=== PATIENT | male | born 1945 | race Caucasian/White ===

== ENCOUNTER 2020-06-15 17:09 | Observation (INO) | payer MEDICARE, OTHER ==
[~2020-06-15] VITALS: Ht 180.3 cm; Wt 137.4 kg
--- NOTE | 2020-06-15 17:52 | PHYS DOC ---
General Adult EDM: Chief Complaint: CHEST PAIN HPI: HPI: 74-year-old male presents after syncopal episode. The patient was loading a table into his truck and then went home. After he got home and started walking up the stairs he began to get dizzy. He describes the dizziness as a lightheaded feeling. He got inside the house and then believes he had a syncopal episode. He woke up on the floor. He is unsure how long he was unc onscious. When he woke up he had central chest pain that was a pressure sensation 4 out of 10 and a bandlike headache that was mild to moderate. He called an ambulance to come to the hospital. Patient denies any other injuries from the syncopal episode. He was feeling okay prior to this. No other symptoms of illness. He has had a cardiac cath once in the past but it was 4 to 5 years ago. No stress test since then. The patient is diabetic on several medications. He also has hypertension. He denies fever or chills. (PARISH BERG DO) Review of Systems: Review of Systems: Constitutional: Denies fever or chills Eyes: Denies change in visual acuity HENT: Denies nasal congestion or sore throat Respiratory: Denies cough or shortness of breath Cardiovascular: Chest pain GI: Denies abdominal pain, nausea, vomiting, bloody stools or diarrhea : Denies dysuria Musculoskeletal: Denies back pain or joint pain Integument: Denies rash Neurologic: Headache, syncope. Denies focal weakness or sensory changes Endocrine: Denies polyuria or polydipsia Lymphatic: Denies swollen glands Psychiatric: Denies depression or anxiety (PARISH BERG DO) Heart Score: HEART Score for Chest Pain: HEART Score for Chest Pain Response (Comments) Value History Slighlty/Non-Suspicious 0 ECG Normal 0 Age > 65 2 Risk Factors >3 Risk Factors or Hx CAD 2 Total 4 Risk Factors: Risk Factors: DM, Current or recent (<one month) smoker, HTN, HLP, family history of CAD, obesity. Risk Scores: Score 0 - 3: 2.5% MACE over next 6 weeks - Discharge Home Score 4 - 6: 20.3% MACE over next 6 weeks - Admit for Clinical Observation Score 7 - 10: 72.7% MACE over next 6 weeks - Early Invasive Strategies (PARISH BERG DO) Allergies: Allergies: Allergies Coded Allergies Type Severity Reaction Last Updated Verified No Known Drug Allergies 06/15/20 No (PARISH BERG DO) Physical Exam: PE: Constitutional: Well developed, well nourished, morbid obesity, no acute distress, non-toxic appearance. [] HENT: Normocephalic, atraumatic, bilateral external ears normal, oropharynx moist, no oral exudates, nose normal. [] Eyes: PERRLA, EOMI, conjunctiva normal, no discharge. [] Neck: Normal range of motion, no tenderness, supple, no stridor. [] Cardiovascular: Heart rate regular rhythm, no murmur [] Lungs & Thorax: Bilateral breath sounds clear to auscultation [] Abdomen: Bowel sounds normal, soft, no tenderness, no masses, no pulsatile masses. [] Skin: Warm, dry, no erythema, no rash. [] Back: No tenderness, no CVA tenderness. [] Extremities: No tenderness, no cyanosis, no clubbing, ROM intact, no edema. [] Neurologic: Alert and oriented X 3, normal motor function, normal sensory function, no focal deficits noted. [] Psychologic: Affect normal, judgement normal, mood normal. [] (PARISH BERG DO) EKG: EKG: Sinus rhythm, rate 85, normal axis, no ST elevations or depressions. [] (PARISH BERG DO) Radiology/Procedures: Radiology/Procedures: [] (PARISH BERG DO) Course & Med Decision Making: Course & Med Decision Making Pertinent Labs and Imaging studies reviewed. (See chart for details) The patient's work-up is pending. I am signing the patient out to Dr. Alvarez at 1800. [] (PARISH BERG DO) Course & Med Decision Making Assumed care from Dr. Berg at shift change. Patient resting comfortably. Discussed admission for chest pain evaluation and syncope. Patient admitted to Dr. Delgado on telemetry (LAVELL ALVAREZ MD) Gonzalo Disclaimer: Gonzalo Disclaimer: This electronic medical record was generated, in whole or in part, using a voice recognition dictation system. (PARISH BERG DO) Departure Departure: Impression: Primary Impression: Syncope Additional Impression: Chest pain Disposition: 01 DC HOME SELF CARE/HOMELESS Condition: STABLE Referrals: PCP,NO (PCP) PARISH BERG DO Jun 15, 2020 17:52 LAVELL ALVAREZ MD Jun 15, 2020 19:20
--- NOTE | 2020-06-15 18:01 | EKG ---
[address] [address] Test Date: 2020-06-15 Test Time: 17:23:27 Pat Name: AMERICA TONY Department: Room: Gender: M Presentation Team Member: : [id number] Requested By: PARISH BERG Order Number: [id number] Reading MD: Measurements Intervals [place] Rate: 85 P: 42 W[place]: 140 QRS: 16 QRSD: 96 T: 66 QT: 376 QTc: 448 Interpretive Statements SINUS RHYTHM LOW LIMB LEAD VOLTAGE NO SPECIFIC ECG ABNORMALITIES RI6.02 No previous ECG available for comparison
[2020-06-15 18:13] LABS: BASO # 0.1 x10^3/uL (0.0-0.2); BASO % 1 % (0-3); EOS # 0.1 x10^3/uL (0.0-0.7); EOS % 1 % (0-3); HEMATOCRIT 44.6 % (39.0-53.0); HEMOGLOBIN 14.9 g/dL (13.0-17.5); LYMPH # 1.8 x10^3/uL (1.0-4.8); LYMPH % 26 % (24-48); MEAN CORPUSCULAR HEMOGLOBIN 32 pg (25-35); MEAN CORPUSCULAR HGB CONC 33 g/dL (31-37); MEAN CORPUSCULAR VOLUME 96 fL (79-100); MONO # 0.7 x10^3/uL (0.0-1.1); MONO % 9 % (0-9); NEUT # 4.3 x10^3uL (1.8-7.7); NEUT % 62 % (31-73); PLATELET COUNT 160 x10^3/uL (140-400); RED BLOOD COUNT 4.67 x10^6/uL (4.30-5.70); RED CELL DISTRIBUTION WIDTH 13.7 % (11.5-14.5); WHITE BLOOD COUNT 6.9 x10^3/uL (4.0-11.0)
--- NOTE | 2020-06-15 18:15 | RAD ---
Examination: CT HEAD WO CONTRAST History: Reason: syncope / Comparison/Correlation: None Findings: Axial images of the head were obtained without contrast. Atrophy is present. No intracranial hemorrhage, midline shift, or mass effect. Cavernous carotid calcifications present. Bony structures unremarkable. Orbits are unremarkable. Impression: No suspicious process. Electronically signed by: Monico James MD (06/15/2020 6:12 PM) [facility]
[2020-06-15 18:16] LABS: CALCIUM 9.2 mg/dL (8.5-10.1); CREATININE 1.5 mg/dL (0.7-1.3); GFR 45.6; POTASSIUM 4.2 mmol/L (3.5-5.1)
[2020-06-15 18:23] LABS: ALBUMIN/GLOBULIN RATIO 1.1 (1.0-1.7); TOTAL BILIRUBIN 0.2 mg/dL (0.2-1.0); TOTAL PROTEIN 7.6 g/dL (6.4-8.2)
--- NOTE | 2020-06-15 18:49 | RAD ---
Examination: CHEST AP ONLY History: Reason: syncope / Spl. Instructions: / History: Comparison: 06/21/2007. Findings: AP portable upright frontal view of the chest was obtained. The cardiomediastinal silhouette is normal. Lungs are clear. There is no pneumothorax. No pleural effusion is appreciated. No acute bone abnormality. IMPRESSION: No acute cardiopulmonary process. Electronically signed by: Monico James MD (06/15/2020 6:45 PM) [facility]
[2020-06-15] MEDS ORDERED: ACETAMINOPHEN 325 MG TABLET PO PRN (19:30)
[2020-06-15] MEDS ORDERED: NITROGLYCERIN SUBLINGUAL 0.4 MG BOTTLE OF 25. SL PRN (19:30)
[2020-06-15] MEDS ORDERED: ACETAMINOPHEN 325 MG TABLET PO ONE (19:30)
[2020-06-15] MEDS ORDERED: ONDANSETRON PF 4 MG/2 ML VIAL. IVP PRN (19:30)
--- NOTE | 2020-06-15 20:30 | NUR ---
The patient, AMERICA TONY, 74 y/o, M admitted by MICHELLE MARTI MD, was given written information regarding hospital policies, unit procedures and contact persons. Valuables were checked and documented. pt vitals are stable, pt is on telemetry. pt is A&OX4 and had complaints of only a headache at this time, pt was given tylenol per order. pt is currently resting in bed. will continue to monitor.
[2020-06-15 21:26] VITALS: BP 133/92
[2020-06-15] MEDS ORDERED: metFORMIN XR 500 MG TAB.ER.24H PO SCH (22:00)
[2020-06-15] MEDS ORDERED: LINAGLIPTIN 5 MG TABLET PO SCH (22:00)
[2020-06-15] MEDS ORDERED: PIOG15TA42 PO (23:00)
[2020-06-15] MEDS ORDERED: ASPI-630 PO (23:00)
[2020-06-15 23:04] VITALS: BP 164/81
[2020-06-15] MEDS ORDERED: GLIM4TAB8 PO (23:05)
[2020-06-15] MEDS ORDERED: GLIM4TAB PO (23:05)
[2020-06-15] MEDS ORDERED: TELM80TA PO (23:05)
[2020-06-16 01:39] LABS: BASO # 0.1 x10^3/uL (0.0-0.2); BASO % 1 % (0-3); EOS # 0.2 x10^3/uL (0.0-0.7); EOS % 3 % (0-3); HEMATOCRIT 41.4 % (39.0-53.0); HEMOGLOBIN 14.1 g/dL (13.0-17.5); LYMPH # 2.6 x10^3/uL (1.0-4.8); LYMPH % 36 % (24-48); MEAN CORPUSCULAR HEMOGLOBIN 32 pg (25-35); MEAN CORPUSCULAR HGB CONC 34 g/dL (31-37); MEAN CORPUSCULAR VOLUME 95 fL (79-100); MONO # 0.8 x10^3/uL (0.0-1.1); MONO % 11 % (0-9); NEUT # 3.6 x10^3uL (1.8-7.7); NEUT % 49 % (31-73); PLATELET COUNT 140 x10^3/uL (140-400); RED BLOOD COUNT 4.37 x10^6/uL (4.30-5.70); RED CELL DISTRIBUTION WIDTH 13.5 % (11.5-14.5); WHITE BLOOD COUNT 7.2 x10^3/uL (4.0-11.0)
[2020-06-16 01:55] LABS: ALBUMIN 3.6 g/dL (3.4-5.0); ALBUMIN/GLOBULIN RATIO 1.1 (1.0-1.7); CALCIUM 9.2 mg/dL (8.5-10.1); CREATININE 1.4 mg/dL (0.7-1.3); GFR 49.4; POTASSIUM 3.9 mmol/L (3.5-5.1); TOTAL BILIRUBIN 0.2 mg/dL (0.2-1.0); TOTAL PROTEIN 6.8 g/dL (6.4-8.2)
[2020-06-16 05:24] VITALS: BP 161/84
--- NOTE | 2020-06-16 08:38 | PDOC2 ---
CARDIAC CONSULT DATE OF CONSULT DOS: DATE: 06/16/20 TIME: 08:34 REASON FOR CONSULT Reason for Consult Chest pain REFERRING PHYSICIAN Referring Physician Dr. Delgado SOURCE Source: Chart review, Patient HPI History of Present Illness This is a 74 yo male who presented secondary to syncopal episode and chest pain. Patient is moving here from [place] to be closer to family. Purchased a table and went and picked in up yesterday. Load this table in his truck and went home. Was feeling well at that time. Reports he went home and was in his bedroom. Began feeling dizzy and nauseated. Next thing he knew he was on the floor and had passed out. Unsure how long he was down. Was slightly confused upon awakening. Had headache and had some tightness in his central chest with intermittent stabbing pain in the central chest. Was diaphoretic upon awakening as well. Decided to come to the ED for further evaluation and treatment. Has a history of Torsades reportedly. Was diagnosed about [address] [facility]. Underwent cardiac catheterization at that time for he report to have been normal. He reports pacemaker was discussed at that time, but he did not want any further hardware in his body. PAST MEDICAL HISTORY Cardiovascular: HTN, Other (Torsades) Pulmonary: Other (WILFREDO) Endocrine: Diabetes, Other (obese ) PAST SURGICAL HISTORY Past Surgical History: Other (neck fusion, lower back surgery, hernia repair ) FAMILY HISTORY Family History: Cancer, Diabetes, Heart Disease SOCIAL HISTORY Smoke: No ALCOHOL: none Drugs: None Lives: Friends (recently moved from [place]. Living with friend until he closes on his new home) CURRENT MEDICATIONS Current Medications Current Medications Ondansetron HCl (Zofran) 4 mg PRN Q4HRS PRN IVP NAUSEA/VOMITING; Start 06/15/20 at 19:30; Stop 06/16/20 at 19:29 Fentanyl Citrate (Fentanyl 2ml Vial) 50 mcg PRN Q1HR PRN IVP PAIN; Start 06/15/20 at 19:30; Stop 06/16/20 at 19:29 Acetaminophen (Tylenol) 650 mg PRN Q4HRS PRN PO FEVER > 100.3'F Last administered on 06/15/20at 22:01; Start 06/15/20 at 19:30; Stop 06/16/20 at 19:29 Nitroglycerin (Nitrostat) 0.4 mg PRN Q5MIN PRN SL CHEST PAIN; Start 06/15/20 at 19:30; Stop 06/16/20 at 19:29 Acetaminophen (Tylenol) 650 mg 1X ONCE PO ; Start 06/15/20 at 19:30; Stop 06/15/20 at 19:40; Status DC Linagliptin (Tradjenta) 5 mg HS PO Last administered on 06/15/20at 22:01; Start 06/15/20 at 22:00 Metformin HCl (Glucophage Xr) 1,000 mg HS PO Last administered on 06/15/20at 22:01; Start 06/15/20 at 22:00 Active Scripts Active Reported Amaryl (Glimepiride) 4 Mg Tablet 1 Tab PO DAILY Micardis (Telmisartan) 80 Mg Tablet 1 Tab PO DAILY Glimepiride 4 Mg Tablet 1 Tab PO DAILY Actos (Pioglitazone Hcl) 15 Mg Tablet 1 Tab PO DAILY 30 Days Aspirin 81 Mg Tab.chew 81 Mg PO DAILY ALLERGIES Allergies: Coded Allergies: No Known Drug Allergies (Unverified , 06/15/20) ROS Review of Systems 14 point ROS conducted with pertinent positives noted above in HPI PHYSICAL EXAM General: Alert, Oriented X3, Cooperative, No acute distress HEENT: Atraumatic, Other (central chest pain with palpation) Lungs: Clear to auscultation Heart: Regular rate Abdomen: Soft, Other (obese ) Skin: No rashes, No breakdown Neuro: Normal speech, Sensation intact Psych/Mental Status: Mental status NL, Mood NL MUSCULOSKELETAL: Osteoarthritic changes both hands VITALS Vital Signs Vital Signs Date Time Temp Pulse Resp B/P (MAP) Pulse Ox O2 Delivery O2 Flow Rate FiO2 06/16/20 05:24 97.7 95 20 161/84 (109) 95 Room Air LABS LABS Laboratory Tests Test 06/15/20 17:17 06/16/20 01:14 06/16/20 07:11 White Blood Count 6.9 x10^3/uL (4.0-11.0) 7.2 x10^3/uL (4.0-11.0) Red Blood Count 4.67 x10^6/uL (4.30-5.70) 4.37 x10^6/uL (4.30-5.70) Hemoglobin 14.9 g/dL (13.0-17.5) 14.1 g/dL (13.0-17.5) Hematocrit 44.6 % (39.0-53.0) 41.4 % (39.0-53.0) Mean Corpuscular Volume 96 fL (79-100) 95 fL (79-100) Mean Corpuscular Hemoglobin 32 pg (25-35) 32 pg (25-35) Mean Corpuscular Hemoglobin Concent 33 g/dL (31-37) 34 g/dL (31-37) Red Cell Distribution Width 13.7 % (11.5-14.5) 13.5 % (11.5-14.5) Platelet Count 160 x10^3/uL (140-400) 140 x10^3/uL (140-400) Neutrophils (%) (Auto) 62 % (31-73) 49 % (31-73) Lymphocytes (%) (Auto) 26 % (24-48) 36 % (24-48) Monocytes (%) (Auto) 9 % (0-9) 11 % (0-9) Eosinophils (%) (Auto) 1 % (0-3) 3 % (0-3) Basophils (%) (Auto) 1 % (0-3) 1 % (0-3) Neutrophils # (Auto) 4.3 x10^3uL (1.8-7.7) 3.6 x10^3uL (1.8-7.7) Lymphocytes # (Auto) 1.8 x10^3/uL (1.0-4.8) 2.6 x10^3/uL (1.0-4.8) Monocytes # (Auto) 0.7 x10^3/uL (0.0-1.1) 0.8 x10^3/uL (0.0-1.1) Eosinophils # (Auto) 0.1 x10^3/uL (0.0-0.7) 0.2 x10^3/uL (0.0-0.7) Basophils # (Auto) 0.1 x10^3/uL (0.0-0.2) 0.1 x10^3/uL (0.0-0.2) Sodium Level 139 mmol/L (136-145) 140 mmol/L (136-145) Potassium Level 4.2 mmol/L (3.5-5.1) 3.9 mmol/L (3.5-5.1) Chloride Level 104 mmol/L (98-107) 105 mmol/L (98-107) Carbon Dioxide Level 23 mmol/L (21-32) 25 mmol/L (21-32) Anion Gap 12 (6-14) 10 (6-14) Blood Urea Nitrogen 15 mg/dL (8-26) 16 mg/dL (8-26) Creatinine 1.5 mg/dL (0.7-1.3) 1.4 mg/dL (0.7-1.3) Estimated GFR (Cockcroft-Gault) 45.6 49.4 BUN/Creatinine Ratio 10 (6-20) 11 (6-20) Glucose Level 153 mg/dL (70-99) 166 mg/dL (70-99) Calcium Level 9.2 mg/dL (8.5-10.1) 9.2 mg/dL (8.5-10.1) Total Bilirubin 0.2 mg/dL (0.2-1.0) 0.2 mg/dL (0.2-1.0) Aspartate Amino Transf (AST/SGOT) 20 U/L (15-37) 16 U/L (15-37) Alanine Aminotransferase (ALT/SGPT) 40 U/L (16-63) 36 U/L (16-63) Alkaline Phosphatase 98 U/L (46-116) 86 U/L (46-116) Troponin I Quantitative < 0.017 ng/mL (0-0.055) < 0.017 ng/mL (0-0.055) < 0.017 ng/mL (0-0.055) Total Protein 7.6 g/dL (6.4-8.2) 6.8 g/dL (6.4-8.2) Albumin 4.0 g/dL (3.4-5.0) 3.6 g/dL (3.4-5.0) Albumin/Globulin Ratio 1.1 (1.0-1.7) 1.1 (1.0-1.7) ASSESSMENT/PLAN Assessment/Plan 1. Syncope; CT head without acute findings. No acute arrhythmias noted on tele 2. Chest pain, mixed features; AMI ruled out. Reports [facility] 7 years ago without intervention 3. H/o Torsades?; patient reports he was diagnosed 7 years ago during stress test. Was taken for LHC, which was unrevealing. Pacemaker/AICD was discussed, but he declined. Does not follow with publications manager. 4. Hypertension; elevated 5. Diabetes, II 6. CKD 7. WILFREDO; non-compliant with CPAP Recommendations Echo to assess LV systolic function Lipids, TSH ASA therapy Home antiHTN therapy resumed Add low-dose BB Monitor tele Outpatient event monitor versus loop recorder implant; will discussed with primary publications manager Outpatient ischemic evaluation with stress testing as scheduled Follow up this Monday with Dr. Valentino in [facility] at 2:30pm JUAN CARLOS PARRA APRN Jun 16, 2020 08:38
[2020-06-16] MEDS ORDERED: GLIMEPIRIDE 2 MG TABLET PO SCH ×2 (10:00→21:00)
[2020-06-16] MEDS ORDERED: ASPIRIN CHEWABLE 81 MG TABLET. PO SCH (10:00)
[2020-06-16] MEDS ORDERED: LOSARTAN 50 MG TABLET. PO SCH (10:00)
[2020-06-16] MEDS ORDERED: PIOGLITAZONE 15 MG TABLET. PO SCH (10:00)
--- NOTE | 2020-06-16 10:49 | NUR ---
Patient is sitting in bed watching tv. He is cooperative, calm and pleasant. Oriented x4. Cardiology was here to see patient, she stated he will have an echo and some follow up through them. Patient knowledgeable about his medications and his health. He states he feels "much better" than he did last night.
[2020-06-16 11:10] VITALS: BP 134/82
--- NOTE | 2020-06-16 14:15 | HP ---
ADMIT DATE: 06/15/2020 HISTORY OF PRESENT ILLNESS: The patient is a 74-year-old male patient, who presented secondary to syncopal episode and chest pain. The patient is moving here from [place] to be closer to his family, purchased a table and went and picked it up yesterday, loaded this table in his truck and went home, was feeling well at that time, he reports he went home and was in the bedroom, began feeling dizzy and nauseated, next thing he knew he was on the floor, had passed out. Unsure how long he was down, was slightly confused upon awakening. He has headache and some tightness in his central chest with intermittent stabbing pain in his central chest, was diaphoretic upon awakening as well, decided to come to the Emergency Room for further evaluation and treatment. He apparently had a history of torsades reported, was diagnosed about [address] [facility] and underwent cardiac catheterization at that time. However, he has no stents placed. He reports that the pacemaker was discussed at that time, but he did not want any further hardware in his body and was basically seen in the Emergency Room, evaluated and has had first set of cardiac enzyme, first set of cardiac enzyme was less than 0.17 and was admitted to do 2 more sets of cardiac enzyme and to consult the cardiology team and to monitor him on telemetry bed. PAST MEDICAL HISTORY: Significant for an episode of torsades de pointes. He has hypertension, type 2 diabetes mellitus, chronic kidney disease, COPD, obstructive sleep apnea, generalized osteoarthritis. He said he has a CPAP, but has never used it. PAST SURGICAL HISTORY: Significant for bilateral total ____ arthroplasty, cervical spine fusion, lumbar spine fusion. He also has bilateral cataract extraction and hernia repair. ALLERGIES: He has no known drug allergies. FAMILY HISTORY: He has 2 sisters who are alive and younger. One brother who is younger because of complication of drug abuse after he served in [place]. His father at the age of 74 because of throat cancer. Mother at the age of 62 because of breast cancer. SOCIAL HISTORY: He is , has 4 daughters. He smoked a long time ago. Does not drink alcohol or use recreational drugs. He is currently on disability. He apparently currently lives with friends. Has recently moved from [place], living with ____ in his new home. CURRENT MEDICATIONS: He is on Micardis 80 mg once a day, aspirin 81 mg once a day, glimepiride 4 mg daily, and pioglitazone for Actos 50 mg p.o. daily. PHYSICAL EXAMINATION: GENERAL: On arrival to the Emergency Room, he looked well and was clearly in no apparent respiratory distress. No pallor, jaundice, cyanosis or thyromegaly. No jugular venous distention. No lower limb edema. VITAL SIGNS: His heart rate was 86, blood pressure was 160/120, temperature was 97.7, respiratory rate 20, and oxygen saturation was 95%. HEAD, EYES, EARS, NOSE AND THROAT: Normocephalic, atraumatic. NECK: Supple. HEART: Showed normal first and second heart sounds. No gallop or murmur. CHEST: Clear to auscultation. No crepitation or rhonchi. ABDOMEN: Distended, soft, nontender. NEUROLOGIC: He was awake, alert, responding appropriately. All cranial nerves intact. EXTREMITIES: He moves extremities without difficulty. He ambulates without assistance or assistive devices. His affect, judgment and mood were normal. LABORATORY DATA: His EKG showed that he was in sinus rhythm at a rate of 85 beats per minute, no ST segment elevation or depression. His lab work showed a white cell count of 6900, hemoglobin 14.9, hematocrit 44.6, MCV 96, and platelet count of 160,000. His serum sodium 140, potassium 3.9, chloride 105, bicarbonate 25, anion gap of 10, BUN 16, creatinine 1.4, estimated GFR was 49 mL per minute, his glucose 166, calcium was 9.2, magnesium was 2.1. Total bilirubin, AST, ALT, alkaline phosphatase were normal. His first set of troponin was 0.017. Total protein 6.8, albumin was 3.6. He has had a CT scan of the head, which showed that the patient has atrophy present. No intracranial hemorrhage, midline shift, or mass effect. Cavernous carotid calcification present. Bony structures unremarkable. Orbits are unremarkable. His chest x-ray showed that the cardiomediastinal silhouette is normal. Lungs are clear. There is no pneumothorax, no pleural effusion is appreciated, no acute bony abnormalities. ASSESSMENT AND PLAN: In summary, this is a 74-year-old male patient who was admitted with what seems to be a syncopal episode and chest pain as well as headache. We will monitor him on a telemetry bed. We will do 2 more sets of cardiac enzyme and consult the gauge checker. MICHELLE MARTI MD DR: CAMRYN/aura JOB#: [id number] / [id number]
[2020-06-16 15:00] VITALS: BP 158/82
[2020-06-16 16:16] LABS: THYROID STIM HORMONE (TSH) 3.649 uIU/mL (0.358-3.740)
--- NOTE | 2020-06-16 17:04 | CARD ---
MR#: [id number] Date of Study: 06/16/2020 Ordering Physician: JUAN CARLOS PARRA, Referring Physician: JUAN CARLOS PARRA, Tech: Chyna Ray EZEQUIEL APPROVED REPORT EXAM: Two-dimensional and M-mode echocardiogram with Doppler and color Doppler. Other Information Quality : Fair INDICATION Chest Pain Syncope RISK FACTORS Obesity 2D DIMENSIONS RVDd2.9 (2.9-3.5cm)Left Atrium(2D)3.8 (1.6-4.0cm) IVSd1.1 (0.7-1.1cm)Aortic Root(2D)3.6 (2.0-3.7cm) LVDd5.7 (3.9-5.9cm)PWd1.1 (0.7-1.1cm) LVDs4.2 (2.5-4.0cm)FS (%) 26.2 % SV82.9 ml Aortic Valve AoV Peak Drake.143.0cm/sAoV VTI23.3cm AO Peak GR.8.2mmHgAO Mean GR.4mmHg PETE (VTI)3.18cm2 Mitral Valve MV E Ekrgzfwt42.6cm/sMV DECEL [id number] MV A Hgytkfsj36.7cm/sE/A Ratio0.8 LEFT VENTRICLE The left ventricle is normal size. There is normal left ventricular wall thickness. The left ventricu lar systolic function is normal and the ejection fraction is within normal range. The Ejection Fracti on is 50-55%. There is normal LV segmental wall motion. Transmitral Doppler flow pattern is Grade I-a bnormal relaxation pattern. RIGHT VENTRICLE The right ventricle is normal size. The right ventricular systolic function is normal. ATRIA The left atrium size is normal. The right atrium size is normal. The interatrial septum is intact wit h no evidence for an atrial septal defect or patent foramen ovale as noted on 2-D or Doppler imaging. AORTIC VALVE The aortic valve is not well visualized but appears to be functioning normally by Doppler interrogati on. Doppler and Color Flow revealed no significant aortic regurgitation. There is no significant aort ic valvular stenosis. MITRAL VALVE The mitral valve is normal in structure and function. There is no evidence of mitral valve prolapse. There is no mitral valve stenosis. Doppler and Color Flow revealed trace mitral valve regurgitation. TRICUSPID VALVE The tricuspid valve is normal in structure and function. Doppler and Color Flow revealed no tricuspid valve regurgitation noted. There is no tricuspid valve stenosis. PULMONIC VALVE The pulmonic valve is not well visualized. Doppler and Color Flow revealed no pulmonic valvular regur gitation. There is no pulmonic valvular stenosis. GREAT VESSELS The aortic root is normal in size. The ascending aorta is mildly dilated at 3.5 cm. The IVC is dilate d but responsive with inspiration >50%. PERICARDIAL EFFUSION There is no evidence of significant pericardial effusion. Critical Notification Critical Value: No <Conclusion> The left ventricle is normal size. The left ventricular systolic function is normal and the ejection fraction is within normal range. The Ejection Fraction is 50-55%. Doppler and Color Flow revealed no significant aortic regurgitation. There is no significant aortic valvular stenosis. Doppler and Color Flow revealed trace mitral valve regurgitation. Doppler and Color Flow revealed no tricuspid valve regurgitation noted. The ascending aorta is mildly dilated at 3.5 cm. Signed by : Stanley Walsh MD Electronically Approved : 06/16/2020 17:03:33
[2020-06-16] MEDS ORDERED: METO25TA4 PO (17:07)
--- NOTE | 2020-06-16 17:20 | NUR ---
Patient discharged to home. Follow up cardiology appointment information given to patient. Patient picked up by a friend. Reviewed discharge information and medication list with patient prior to discharge.
[2020-06-16] MEDS ORDERED: LINAGLIPTIN 5 MG TABLET PO SCH (21:00)
[2020-06-16] MEDS ORDERED: METOPROLOL TART IMMED RELEASE 25 MG TABLET. PO SCH (21:00)
[2020-06-16] MEDS ORDERED: metFORMIN XR 500 MG TAB.ER.24H PO SCH (21:00)
[2020-06-17] MEDS ORDERED: PIOGLITAZONE 15 MG TABLET. PO SCH (09:00)
[2020-06-17] MEDS ORDERED: GLIMEPIRIDE PO SCH (09:00)
== END 2020-06-16 17:45 | disposition home or self-care (01) ==
LOC: ER 17:09 → 1 SOUTH 19:49
PROVIDERS: ADMIT Internal Medicine; ATTEND Internal Medicine
DX: R07.89 Other chest pain (principal); R55 Syncope and collapse; R51.9 Headache, unspecified; I12.9 Hypertensive chronic kidney disease with stage 1 through stage 4 chronic kidney disease, or unspecified chronic kidney disease; N18.9 Chronic kidney disease, unspecified; E11.22 Type 2 diabetes mellitus with diabetic chronic kidney disease; J44.9 Chronic obstructive pulmonary disease, unspecified; G47.33 Obstructive sleep apnea (adult) (pediatric); M15.9 Polyosteoarthritis, unspecified; Z98.41 Cataract extraction status, right eye; Z98.42 Cataract extraction status, left eye; Z95.0 Presence of cardiac pacemaker; Z87.891 Personal history of nicotine dependence; Z98.890 Other specified postprocedural states; Z79.84 Long term (current) use of oral hypoglycemic drugs; Z79.82 Long term (current) use of aspirin
CPT/HCPCS: 36415; 70450; 71045; 80053; 80061; 82947; 83735; 84443; 84484; 85025; 93005; 93306; 99285; G0378; G0379